=== PATIENT | female | born 1970 | race Caucasian/White ===

== ENCOUNTER 2017-10-20 17:42 | Emergency (ER) | payer MEDICAID, OTHER ==
[2017-10-20] MEDS ORDERED: ALBUTEROL/IPRATROPIUM 1 VIAL SOL ONE (17:47)
[2017-10-20] MEDS ORDERED: SOLUMEDROL 125 MG/2 ML 125 MG/2 ML PDS IV ONE (18:09)
[2017-10-20] MEDS ORDERED: ALBUTEROL/IPRATROPIUM 1 VIAL SOL INH ONE (18:09)
[2017-10-20] MEDS ORDERED: SOLUMEDROL 125 MG/2 ML 125 MG/2 ML PDS ONE (18:11)
[2017-10-20] MEDS ORDERED: PREDNISONE 20 MG TAB PO ONE (18:23)
[2017-10-20] MEDS ORDERED: PREDNISONE 20 MG TAB ONE (18:30)
[2017-10-20 19:00] VITALS: TEMP 98.5
[2017-10-20 20:13] VITALS: BP 147/92; PULSE 80; RESP 22; O2SAT 98
== END 2017-10-20 18:55 | disposition home or self-care (01) | DRG 203 ==
LOC: ED 17:42
DX: J45.909 Unspecified asthma, uncomplicated (principal)
CPT/HCPCS: 96374; 99283; 99284; J2930; A9270-GY

== ENCOUNTER 2017-10-21 17:56 | Emergency (ER) | payer OTHER ==
[2017-10-21 18:04] VITALS: TEMP 99.4
[2017-10-21] MEDS ORDERED: SODIUM CHLORIDE 0.9% FLUSH 10 ML SOL IV PRN (18:04)
[2017-10-21] MEDS ORDERED: LORAZEPAM 2 MG/ML SOL IV ONE (18:04)
[2017-10-21] MEDS ORDERED: LORAZEPAM 2 MG/ML SOL ONE (18:05)
[2017-10-21 18:12] LABS: BASOPHILS % (AUTO) 0 % (0-3); EOSINOPHILS % (AUTO) 0 % (0-9); HEMATOCRIT 40 % (35-47); MEAN CORPUSCULAR HGB CONC 32.7 gm/dl (32.0-36.0); MEAN CORPUSCULAR VOLUME 89 fL (81-99); MONOCYTES % (AUTO) 3.3 % (0-12); NEUTROPHILS % (AUTO) 87.7 % (37-80)
[2017-10-21 19:31] VITALS: BP 121/83; PULSE 89; RESP 24; O2SAT 95
== END 2017-10-21 19:24 | disposition home or self-care (01) | DRG 203 ==
LOC: ED 17:56
DX: J45.901 Unspecified asthma with (acute) exacerbation (principal)
CPT/HCPCS: 71046; 85025; 96374; 99283; 99284; J2060

== ENCOUNTER 2017-10-23 17:46 | Emergency (ER) | payer OTHER ==
[2017-10-23] MEDS ORDERED: ALBUTEROL/IPRATROPIUM 1 VIAL SOL ONE (17:54)
[2017-10-23] MEDS ORDERED: ALBUTEROL/IPRATROPIUM 1 VIAL SOL INH ONE (17:56)
[2017-10-23 17:59] VITALS: TEMP 97.1
[2017-10-23 18:10] VITALS: RESP 24
[2017-10-23] MEDS ORDERED: SOLUMEDROL 125 MG/2 ML 125 MG/2 ML PDS IM ONE (18:13)
[2017-10-23] MEDS ORDERED: LORAZEPAM 2 MG/ML SOL IM ONE (18:14)
[2017-10-23] MEDS ORDERED: LORAZEPAM 2 MG/ML SOL ONE (18:16)
[2017-10-23] MEDS ORDERED: SOLUMEDROL 125 MG/2 ML 125 MG/2 ML PDS ONE (18:16)
[2017-10-23 18:38] VITALS: O2SAT 97
[2017-10-23 19:36] VITALS: BP 152/89; PULSE 76
== END 2017-10-23 19:55 | disposition home or self-care (01) | DRG 203 ==
LOC: ED 17:46
DX: J45.901 Unspecified asthma with (acute) exacerbation (principal); F41.9 Anxiety disorder, unspecified
CPT/HCPCS: 71045; 96372; 99284; J2060; J2930

== ENCOUNTER 2018-02-23 15:11 | Inpatient (IN) | payer SELFPAY ==
[2018-02-23] MEDS ORDERED: ALBUTEROL/IPRATROPIUM 1 VIAL SOL INH ONE (15:44)
[2018-02-23] MEDS ORDERED: ALBUTEROL/IPRATROPIUM 1 VIAL SOL ONE (15:46)
[2018-02-23] MEDS ORDERED: LORAZEPAM 2 MG/ML SOL ONE ×2 (16:55→21:36)
[2018-02-23] MEDS ORDERED: ALBUTEROL NEB SOL 2.5MG/3ML 1 VIAL SOL NEB PRN (16:59)
[2018-02-23] MEDS: LORAZEPAM 2 MG/ML 10ML MDV 2 MG/ML VIAL IV PRN ×2 (17:10→21:44)
[2018-02-23] MEDS: SOLUMEDROL 125 MG/2 ML 125 MG/2 ML PDS IV SCH ×2 (18:20→22:34)
[2018-02-23] MEDS: ALBUTEROL/IPRATROPIUM 1 VIAL SOL INH SCH ×2 (18:27→22:34)
[2018-02-23] MEDS ORDERED: LORAZEPAM 2 MG/ML SOL IV PRN (21:47)
[2018-02-23] MEDS: AZITHROMYCIN 250 MG TAB PO SCH (22:32)
[2018-02-24] MEDS: ALBUTEROL/IPRATROPIUM 1 VIAL SOL INH SCH ×3 (05:07→16:24)
[2018-02-24] MEDS: SOLUMEDROL 125 MG/2 ML 125 MG/2 ML PDS IV SCH ×5 (05:09→19:54)
[2018-02-24 07:45] LABS: BASOPHILS % (AUTO) 0 % (0-3); EOSINOPHILS % (AUTO) 0 % (0-9); HEMATOCRIT 40 % (35-47); HEMOGLOBIN 12.8 gm/dl (12.0-15.5); LYMPHOCYTES % (AUTO) 8.4 % (10-50); MEAN CORPUSCULAR HEMOGLOBIN 28.3 pg (27.0-32.0); MEAN CORPUSCULAR VOLUME 88 fL (81-99); MONOCYTES % (AUTO) 1.1 % (0-12)
[2018-02-24 07:49] LABS: CALCIUM 9.7 mg/dl (8.5-10.1); CARBON DIOXIDE 22.9 mEq/L (21-32); CREATININE 0.71 mg/dl (0.60-1.00); POTASSIUM 3.7 mMol/L (3.5-5.1)
[2018-02-24] MEDS ORDERED: ENOXAPARIN 30 MG SOL SC SCH (09:00)
[2018-02-24] MEDS: AZITHROMYCIN 250 MG TAB PO SCH (09:00)
[2018-02-24] MEDS: SODIUM CHLORIDE 0.9% FLUSH 10 ML SOL IV PRN ×2 (10:19→14:55)
[2018-02-24] MEDS: ACETAMINOPHEN 325 MG PO PRN ×2 (12:17→17:18)
[2018-02-24 16:19] VITALS: BP 142/83; RESP 18; TEMP 98.2
[2018-02-24 16:50] VITALS: PULSE 114; O2SAT 98
[2018-02-24] MEDS ORDERED: LORATADINE 10 MG TAB PO ONE (22:15)
== END 2018-02-24 20:05 | disposition home or self-care (01) | DRG 203 ==
LOC: ED 15:11 → UNDOADMIN 16:55 → ACUTE CARE 16:55
PROVIDERS: ADMIT Family Medicine; ATTEND Family Medicine
DX: J45.41 Moderate persistent asthma with (acute) exacerbation (principal); F41.9 Anxiety disorder, unspecified; I10 Essential (primary) hypertension; R05 Cough; R06.02 Shortness of breath
CPT/HCPCS: 36415; 71046; 80048; 85025; 94640; 96374; 99282; J2060; J2930; J7613; A9270-GY; J1650

== ENCOUNTER 2018-09-01 15:35 | Emergency (ER) | payer SELFPAY ==
[2018-09-01] MEDS ORDERED: EPINEPHRINE 1:1000 AMP 1 MG/ML SOL ONE ×2 (15:57→17:14)
[2018-09-01] MEDS: EPINEPHRINE 1:1000 AMP 1 MG/ML SOL IM PRN ×2 (16:00→17:24)
[2018-09-01 16:04] VITALS: TEMP 97.9
[2018-09-01] MEDS: SOLUMEDROL 125 MG/2 ML 125 MG/2 ML PDS IV ONE (16:07)
[2018-09-01] MEDS ORDERED: SOLUMEDROL 125 MG/2 ML 125 MG/2 ML PDS ONE (16:10)
[2018-09-01] MEDS ORDERED: DIPHENHYDRAMINE 50 MG/ML SOL ONE (17:13)
[2018-09-01] MEDS: DIPHENHYDRAMINE 50 MG/ML SOL IV ONE (17:20)
[2018-09-01] MEDS: SODIUM CHLORIDE 0.9% FLUSH 10 ML SOL IV PRN (17:22)
[2018-09-01 17:37] VITALS: RESP 16; O2SAT 100
[2018-09-01 18:36] VITALS: BP 123/75; PULSE 90
== END 2018-09-01 18:39 | disposition home or self-care (01) | DRG 916 ==
LOC: ED 15:35
DX: T78.2XXA Anaphylactic shock, unspecified, initial encounter (principal)
CPT/HCPCS: 96372; 96374; 96375; 99284; 99285; J1200; J2930